=== PATIENT | male | born 1990 | race Caucasian/White ===

== ENCOUNTER → 2019-09-26 | Outpatient (CLI) | payer BC ==
[~2019-09-26] VITALS: Ht 185.4 cm; Wt 120.0 kg
[~2019-09-26] MED LIST: AMBIEN 10MG10 MG PO; COZAAR100 MG PO; LIALDA 1.2 GM1.2 GM PO; NORCO 325 MG-101 TAB PO; PARAFON FORTE500 MG PO; TART CHERRY PO; TURMERIC500 MG PO
[2019-09-26 08:27] VITALS: BP 134/90; PULSE 85
[2019-09-26 10:27] VITALS: BP 128/76; PULSE 90
[2019-09-26 10:45] VITALS: BP 128/86; PULSE 90
[2019-09-26 11:00] VITALS: BP 134/89; PULSE 90
== END ==
LOC: COL.RAD 09-25 08:15
DX: M54.6 Pain in thoracic spine (principal); M54.2 Cervicalgia
CPT/HCPCS: J2250; J2704